=== PATIENT | female | born 1955 ===

== ENCOUNTER → 2019-08-24 06:00 | Outpatient (CLI) | payer OTHER ==
[~2019-08-24 06:00] MED LIST: ATACAND HCT 321 EAC1 PO; PLAVIX75 MG PO; PROTONIX20 MG PO; SIMVASTATIN20 MG PO; TOPROL XL50 M1 PO
== END | disposition home or self-care (01) ==
LOC: EKG 06:00 → ADM 10:15 → CIR.AMB 08-30 10:15 → CERTIFICAD 08-30 10:15 → EDSTATUS 08-30 10:15 → ADM 08-30 10:15
DX: E04.1 Nontoxic single thyroid nodule (principal); I10 Essential (primary) hypertension

== ENCOUNTER 2019-11-01 05:20 | Day surgery (SDC) | payer OTHER ==
[~2019-11-01 05:20] MED LIST changes: +NORVASC5 MG PO
[2019-11-01] MEDS ORDERED: PERCOCET 5-3251 EACH PO (11:26)
== END 2019-11-01 22:58 | disposition home or self-care (01) ==
LOC: CIR.AMB 05:20
DX: E06.3 Autoimmune thyroiditis (principal)